=== PATIENT | female | born 2000 | race Two or more races ===

== ENCOUNTER 2024-10-13 05:36 | Emergency (ER) | payer MEDICAID, SELFPAY ==
[2024-10-13 05:38] VITALS: BMI 45.6
[2024-10-13 05:40] VITALS: BP 132/86; PULSE 84; RESP 18; TEMP 36.7; O2SAT 98
--- NOTE | 2024-10-13 05:50 | PD.EDSKIN ---
ED Skin Abcess FB-RME/HPI General Chief complaint: Skin/Abscess/Foreign Body Stated complaint: LEFT ARM TATTOO POSSIBLE INFECTION Time Seen by Provider: 10/13/24 05:48 Source: patient Arrival date/time: 10/13/24 05:36 24-year-old female presents emergency department complaining of infected tattoo to the left forearm. Patient reports tattoo was done 6 days ago but reported redness 2 days ago. Patient unsure if she is up-to-date with tetanus vaccine. Patient denies any fever, chills, vomiting, or any other associated symptom. Mode of arrival: ambulatory Limitations: no limitations Related Data Previous Rx's ?Medication ?Instructions ?Recorded naproxen 500 mg tablet (Naprosyn) 500 mg PO BID PRN pain #30 tabs 08/02/19 diphenhydramine HCl 25 mg capsule 25 mg PO Q8H PRN allergic symptoms 08/22/19 (Benadryl) #30 caps cephalexin 500 mg capsule 500 mg PO QID 5 days #20 caps 10/13/24 Allergies Allergy/AdvReac Type Severity Reaction Status Date / Time No Known Allergies Allergy Verified 10/13/24 05:37 Review of Systems Review of Systems Systems Reviewed: All systems reviewed, normal except as documented Constitutional Constitutional: Reports system reviewed and no additional complaints, except as documented, Denies body ache(s), Denies chills and Denies fever(s) Eyes Eyes: Reports system reviewed and no additional complaints, except as documented and Denies change in vision ENT Ears, Nose, Mouth, and Throat: Reports system reviewed and no additional complaints, except as documented, Denies disequilibrium, Denies dizziness, Denies sore throat and Denies vertigo Cardiovascular Cardiovascular: Reports system reviewed and no additional complaints, except as documented, Denies chest pain and Denies dyspnea Respiratory Respiratory: Reports system reviewed and no additional complaints, except as documented, Denies chest congestion, Denies cough and Denies dyspnea Gastrointestinal Gastrointestinal: Reports system reviewed and no additional complaints, except as documented, Denies abdominal pain, Denies nausea and Denies vomiting Musculoskeletal Musculoskeletal: Reports system reviewed and no additional complaints, except as documented, Denies abnormal gait and Denies arthralgias Integumentary/Breasts Skin/Breast: Reports system reviewed and no additional complaints, except as documented, Reports erythema, Denies rash and Denies wounds Neurologic Neurologic: Reports system reviewed and no additional complaints, except as documented, Denies abnormal gait, Denies disequilibrium, Denies dizziness and Denies vertigo Past Medical History Past Medical History CARDIAC: Negative Congestive Heart Failure RESPIRATORY: Negative Chronic Obstructive Pulmonary Disease (COPD) GENITOURINARY: Negative Renal Disease ENDOCRINE: Negative Diabetes Mellitus Type 1 or Diabetes Mellitus Type 2 PSYCHO/SOCIAL: Positive Depression and Anxiety Social History SMOKING STATUS: Never smoker ED Exam General Limitations: Present no limitations General appearance: Present alert and in no apparent distress Head Head exam: Present atraumatic Eye Eye exam: Present normal appearance, PERRL and EOMI ENT ENT exam: Present normal exam, normal oropharynx and mucous membranes moist Neck Neck exam: Present normal inspection, full ROM and trachea midline Chest Chest inspection: Present normal inspection and symmetric chest wall rise Respiratory Respiratory exam: Present normal lung sounds bilaterally Cardiovascular Cardiovascular exam: Present regular rate, normal rhythm and normal heart sounds Abdominal Exam Abdominal exam: Present soft and normal bowel sounds Extremities Exam Extremities exam: Present normal inspection and full ROM Back Exam Back exam: Present normal inspection and full ROM Neurological Exam Neurological exam: Present alert, oriented X3 and CN II-XII intact Psychiatric Psychiatric exam: Present normal affect and normal mood Skin Skin exam: Present warm and dry Expanded Skin Exam Type of lesion: Present other (Redness) Distribution: Present LUE Description: Present erythematous and swelling Body image:  1. Localized redness mild swelling to left forearm where tattoo was done with no obvious drainage or induration. Course Quality Measures none Vital Signs Vital signs: Vital Signs Temperature 98.0 F 10/13/24 05:40 Pulse Rate 84 10/13/24 05:40 Respiratory Rate 18 10/13/24 05:40 Blood Pressure 132/86 H 10/13/24 05:40 Pulse Oximetry (%) 98 10/13/24 05:40 Oxygen Delivery Method Room Air 10/13/24 05:40 98% room air with normal limits Skin / Abscess / Foreign Body MDM Narrative MDM Narrative:: 24-year-old female presents emergency department complaining of infected tattoo to the left forearm. Patient reports tattoo was done 6 days ago but reported redness 2 days ago. Patient unsure if she is up-to-date with tetanus vaccine. Patient denies any fever, chills, vomiting, or any other associated symptom. Patient given tetanus vaccine. Skin exam localized redness and mild edema to left forearm where tattoo was done with healing scabs. No purulent drainage or obvious abscess observed at this time. Will give IM Rocephin and discharged on cephalexin for nonpurulent cellulitis. Patient given strict instructions to monitor wound daily for any increasing signs of infection fevers or chills that would require her to come immediately to emergency department for evaluation. Instructed to keep wound clean and dry and follow-up with primary care provider in 2 to 3 days for reevaluation of wound. Patient data External records reviewed:: [facility] previous records Clinical information provided by:: patient Social determinants that could affect healthcare access:: none Patient has the following chronic illnesses:: None How is presenting disease/condition affected by chronic disease/condition?: no chronic disease Evaluation data The following diagnostics were reviewed and interpreted by me:: other (specify) (None) Lab and/or radiology exams considered but not ordered:: None Interpretation Summary: None Medications / Prescriptions Medications or Prescriptions considered but not ordered:: Ordered Medication administrations:: Given Consultations Consultation(s) initiated? (list below): No Diagnosis Skin/Abscess Differential Diagnosis: abscess of skin or subcutaneous tissue, viral exanthem, dermatophytosis, cellulitis, insect bites and contact dermatitis Most likely diagnosis given after review of the tests above:: Cellulitis Admission Indicated Admission indicated?: not indicated Admission Request Was there a request for admission?: No Disposition Plan Disposition Plan: Discharge Discharge Attestation Discharge Attestation: The patient and all family members were given an opportunity to ask questions and understood the discharge instructions. Discharge instructions specifically effects, indications for sooner follow up or return to the emergency department, and the expected course of current diagnosis. Patient condition: Stable Discharge Plan Plan Patient Disposition: HOME (Self Care) Disposition Comment: Stable Prescriptions/Referrals Prescriptions/Med Rec: New cephalexin 500 mg capsule 500 mg PO QID 5 Days Qty: 20 0RF No Action naproxen [Naprosyn] 500 mg tablet 500 mg PO BID PRN (Reason: pain) Qty: 30 0RF diphenhydramine HCl [Benadryl] 25 mg capsule 25 mg PO Q8H PRN (Reason: allergic symptoms) Qty: 30 0RF Problem List Clinical Impression: Cellulitis Patient/Caregiver Discharge Instructions Discharge Activity: activity as tolerated Education Materials: Discharge Instructions for Cellulitis, ED Cellulitis Additional Instructions: Take antibiotics as prescribed. Keep wound clean dry and intact. Follow-up with primary care provider in 2 to 3 days for reevaluation of infected tattoo. Return to emergency department for any worsening signs of infection, fevers, worsening symptoms or as needed. Print Language: Mexican Stand Alone Forms: [employer] Award Info., Patient Portal Info Letter PA/CLEAN UP HELPER BANQUET Supervising Physician PA/CLEAN UP HELPER BANQUET Supervising Physician: Dr. Courtney
[2024-10-13] MEDS: DIPHTH,PERTUSS(ACELL),TET VAC 0.5 ML SYR IMi (06:10)
[2024-10-13] MEDS: cefTRIAXone 1,000 MG, LIDOCAINE 1% 20 ML 2.1 ML IM (06:11)
== END 2024-10-13 06:20 | disposition home or self-care (01) ==
LOC: SERX 06:44
PROVIDERS: Emergency Provider Emergency Medicine
DX: L03.114 Cellulitis of left upper limb (principal); Z23 Encounter for immunization
CPT/HCPCS: 90471; 90715; 96372; 99283; J0696; J3490

== ENCOUNTER 2025-08-11 18:30 | Emergency (ER) | payer MEDICAID, SELFPAY ==
[2025-08-11 19:04] VITALS: BP 117/77; PULSE 95; RESP 18; TEMP 36.7; O2SAT 96; BMI 51.7
--- NOTE | 2025-08-11 19:13 | PD.EDSKIN ---
ED Skin Abcess FB-RME/HPI General Chief complaint: Neck Pain/Injury Stated complaint: PAINFUL CYST ON BACK OF NECK, 9/10 Time Seen by Provider: 08/11/25 19:02 Source: patient, RN notes reviewed and old records reviewed Arrival date/time: 08/11/25 18:30 Mode of arrival: ambulatory Limitations: no limitations RME / HPI RME / HPI narrative: 25yof presents to ED for 2-day history of localized redness/swelling and pain to posterior neck. Denies preceding injury. No fever or n/v reported. 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 Related Data Previous Rx's ?Medication ?Instructions ?Recorded naproxen 500 mg tablet (Naprosyn) 500 mg PO BID PRN pain #30 tabs 08/02/19 diphenhydramine HCl 25 mg capsule 25 mg PO Q8H PRN allergic symptoms 08/22/19 (Benadryl) #30 caps sulfamethoxazole 800 1 tab PO BID 7 days #14 tabs 08/11/25 mg-trimethoprim 160 mg tablet (Bactrim DS) Allergies Allergy/AdvReac Type Severity Reaction Status Date / Time No Known Allergies Allergy Verified 08/11/25 18:33 Review of Systems Review of Systems Systems Reviewed: All systems reviewed, normal except as documented Constitutional Constitutional: Denies chills and Denies fever(s) Gastrointestinal Gastrointestinal: Denies nausea and Denies vomiting Integumentary/Breasts Skin/Breast: Reports erythema, Reports skin pain and Reports skin swelling Past Medical History Past Medical History GASTROINTESTINAL: Positive Obesity PSYCHO/SOCIAL: Positive Depression and Anxiety Social History SMOKING STATUS: Never smoker SUBSTANCE USE: does not use ALCOHOL: Never ED Exam General Limitations: Present no limitations General appearance: Present alert and in no apparent distress Head Head exam: Present atraumatic and normocephalic Eye Eye exam: Present normal appearance, PERRL and EOMI ENT ENT exam: Present normal exam and mucous membranes moist Neck Neck exam: Present full ROM and other (Quarter sized area of erythema/swelling with centralized pustule to posterior neck); Absent lymphadenopathy Chest Chest inspection: Present normal inspection and symmetric chest wall rise Respiratory Respiratory exam: Present normal lung sounds bilaterally; Absent respiratory distress Cardiovascular Cardiovascular exam: Present regular rate and normal rhythm Extremities Exam Extremities exam: Present normal inspection and full ROM Neurological Exam Neurological exam: Present alert and oriented X3 Psychiatric Psychiatric exam: Present normal affect and normal mood Skin Skin exam: Present warm, dry and intact Course Quality Measures none Vital Signs Vital signs: Vital Signs Temperature 98.1 F 08/11/25 19:04 Pulse Rate 95 08/11/25 19:04 Respiratory Rate 18 08/11/25 19:04 Blood Pressure 117/77 08/11/25 19:04 Pulse Oximetry (%) 96 08/11/25 19:04 Oxygen Delivery Method Room Air 08/11/25 19:04 PROCEDURES: Abscess I/D Site: neck (posterior) Sedation/analgesia: none Technique: other (pressure with copious purulence expressed) Irrigation: No Packing used?: none Skin / Abscess / Foreign Body MDM Narrative MDM Narrative:: 25yof presents to ED for 2-day history of localized redness/swelling and pain to posterior neck. Denies preceding injury. No fever or n/v reported. 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 Abscess opened and drained in ED. Patient tolerated procedure well, condition improved. Home wound care discussed. Encouraged warm compresses, motrin/tylenol prn pain. Stable for dc, RTED precautions given. Patient data External records reviewed:: [facility] previous records (10/13/24 ED visit for cellulitis) Clinical information provided by:: patient Social determinants that could affect healthcare access:: none Patient has the following chronic illnesses:: obesity How is presenting disease/condition affected by chronic disease/condition?: exacerbated by Evaluation data The following diagnostics were reviewed and interpreted by me:: other (specify) (none) Lab and/or radiology exams considered but not ordered:: none Interpretation Summary: na Medications / Prescriptions Medications or Prescriptions considered but not ordered:: none Medication administrations:: na Consultations Consultation(s) initiated? (list below): No Diagnosis Skin/Abscess Differential Diagnosis: abscess of skin or subcutaneous tissue, urticaria, cellulitis, eczema, insect bites and contact dermatitis Most likely diagnosis given after review of the tests above:: abscess Admission Indicated Admission indicated?: not indicated Admission Request Was there a request for admission?: No Disposition Plan Disposition Plan: Discharge Discharge Attestation Discharge Attestation: The patient and all family members were given an opportunity to ask questions and understood the discharge instructions. Discharge instructions specifically effects, indications for sooner follow up or return to the emergency department, and the expected course of current diagnosis. Patient condition: Stable Discharge Plan Plan Patient Disposition: HOME (Self Care) Patient condition on transfer: Stable Prescriptions/Referrals Prescriptions/Med Rec: New sulfamethoxazole-trimethoprim [Bactrim DS] 800-160 mg tablet 1 tab PO BID 7 Days Qty: 14 0RF No Action naproxen [Naprosyn] 500 mg tablet 500 mg PO BID PRN (Reason: pain) Qty: 30 0RF diphenhydramine HCl [Benadryl] 25 mg capsule 25 mg PO Q8H PRN (Reason: allergic symptoms) Qty: 30 0RF Problem List Clinical Impression: Skin abscess Patient/Caregiver Discharge Instructions Education Materials: ED Abscess, Incision And Drainage Print Language: Bengali Stand Alone Forms: [employer] Award Info., Patient Portal Info Letter PA/FLOUR INSPECTOR Supervising Physician PA/FLOUR INSPECTOR Supervising Physician: Michael
== END 2025-08-11 19:45 | disposition home or self-care (01) ==
LOC: SERX 19:28
PROVIDERS: Emergency Provider Emergency Medicine; PCP Family Medicine
DX: L02.11 Cutaneous abscess of neck (principal)
CPT/HCPCS: 99281